=== PATIENT | female | born 1990 | race African-American/Black ===

== ENCOUNTER 2019-12-17 20:52 | Emergency (ER) | payer SELFPAY ==
[~2019-12-17] VITALS: Ht 165.1 cm; Wt 67.0 kg
[2019-12-17] MEDS ORDERED: SODIUM CHLORIDE 0.9% 1,000 ML IV ONE (22:47)
[2019-12-17] MEDS ORDERED: ONDANSETRON HCL 4MG/2ML INJ IV STA (22:47)
[2019-12-17 23:06] LABS: HEMATOCRIT. 37.9 % (36.0-48.0); HEMOGLOBIN. 13.4 g/dL (12.0-16.0); MEAN CORPUSCULAR HEMOGLOBIN 33.9 pg (28.0-32.0); MEAN CORPUSCULAR VOLUME 96.1 fL (81.0-99.0); MEAN PLATELET VOLUME 8.2 fl (7.4-10.4); PLATELET 243 x1000/uL (130-400); RED BLOOD CELL COUNT 3.94 mill/uL (4.2-5.4); RED CELL DISTRIBUTION WIDTH 12.4 % (11.6-14.6)
[2019-12-17 23:12] LABS: CHLORIDE 106 mEq/L (98-107)
[2019-12-17 23:24] LABS: PLATELET ESTIMATE NORMAL
[2019-12-18 00:55] LABS: CLARITY URINE CLEAR (CLEAR); COLOR URINE DARK YELLOW (YELLOW); KETONES URINE 4+ (NEGATIVE); LEUKOCYTE ESTERASE URINE TRACE (NEGATIVE); NITRITE URINE NEGATIVE (NEGATIVE); OCCULT BLOOD URINE NEGATIVE (NEGATIVE); PH URINE 7.5 (4.5-8.0); PROTEIN URINE 1+ (NEGATIVE); SPECIFIC GRAVITY URINE 1.031 (1.005-1.030)
[2019-12-18] MEDS ORDERED: MAGNESIUM/ALUMINUM HYDROXIDE/SIMETHICONE 30ML UDC PO STA (01:07)
[2019-12-18] MEDS ORDERED: FAMOTIDINE 20MG/2ML VIAL IV STA (01:07)
[2019-12-18] MEDS ORDERED: VISCOUS LIDOCAINE 2% 15 ML UDC PO STA (01:07)
[2019-12-18] MEDS ORDERED: KETOROLAC 15MG/ML VIAL IV ONE (02:00)
[2019-12-18 02:44] VITALS: BP 19/74
[2019-12-18] MEDS ORDERED: IOHEXOL-300 100 ML BOTTLE ONE (03:19)
== END 2019-12-18 02:45 | disposition home or self-care (01) ==
LOC: ER 20:52
DX: N39.0 Urinary tract infection, site not specified (principal); Z20.828 Contact with and (suspected) exposure to other viral communicable diseases; R11.2 Nausea with vomiting, unspecified; F17.290 Nicotine dependence, other tobacco product, uncomplicated; R07.9 Chest pain, unspecified
CPT/HCPCS: 36415; 71045; 74177; 80053; 81003; 83690; 84484; 85025; 93005; 96361; 96374; 96375; 99285; 99406; C9803; J1885; J2405; J3490; J7030; Q9967; U0003

== ENCOUNTER 2021-05-17 21:54 | Emergency (ER) | payer SELFPAY ==
[~2021-05-17] VITALS: Ht 165.1 cm; Wt 73.0 kg
[2021-05-17 22:15] VITALS: BP 108/71
== END 2021-05-18 02:13 | disposition left against medical advice (07) ==
LOC: ER 21:54
DX: Z53.21 Procedure and treatment not carried out due to patient leaving prior to being seen by health care provider (principal)